=== PATIENT | male | born 1990 | race Caucasian/White ===

== ENCOUNTER 2022-08-13 15:01 | Outpatient (CLI) | payer OTHER, SELFPAY ==
--- NOTE | 2022-08-13 15:30 | CRLHL7_ITS ---
For Patients: As a result of the Century Cures Act, medical imaging exams and procedure reports are released immediately into your electronic medical record. You may view this report before your referring provider. If you have questions, please contact your health care provider. INDICATION: Numbness of right-sided face and neck. TECHNIQUE: Multiplanar multisequence noncontrast MR images acquired through the cervical spine. COMPARISON: None. FINDINGS: The cervical lordosis is maintained. Mild biconvex cervical curvature. Vertebral heights are preserved. No acute fracture or spondylolisthesis. No T1 hypointense marrow replacing lesions. The cervical cord is normal in signal intensity. C2-3: Shallow posterior disc bulge. No spinal canal or neural foraminal narrowing. C3-4: Left eccentric disc osteophyte complex. Minimal left uncinate spurring. No spinal canal or neural foraminal narrowing. C4-5: Annular bulge. No spinal canal or neural foraminal narrowing. C5-6: Disc degeneration. Shallow posterior disc osteophyte complex. Right greater than left uncinate spurring. No spinal canal narrowing. Mild right without left neural foraminal narrowing. C6-7: Disc degeneration. Mild disc height loss and mild endplate edema. Left eccentric disc osteophyte complex. Left greater than right uncinate spurring. Mild spinal canal narrowing. Moderate left without right neural foraminal narrowing. C7-T1: No spinal canal or neural foraminal narrowing. T1-2: No spinal canal or neural foraminal narrowing. IMPRESSION: 1. Multilevel cervical spondylosis without spinal canal stenosis or cord signal abnormality. 2. At C6-7, moderate left neural foraminal narrowing with left C7 nerve root encroachment/impingement. Mild discogenic vertebral body edema. Dictated by Galo Nielsen MD @ 08/13/2022 4:38:57 PM (Electronically Signed)
== END 2022-08-13 15:02 | disposition home or self-care (01) ==
PROVIDERS: PCP Family Medicine; Visit Provider Otolaryngology
DX: R20.0 Anesthesia of skin (principal); M47.812 Spondylosis without myelopathy or radiculopathy, cervical region; M50.223 Other cervical disc displacement at C6-C7 level
CPT/HCPCS: 72141

== ENCOUNTER 2022-11-29 15:15 | Outpatient (CLI) | payer OTHER, SELFPAY ==
--- NOTE | 2022-11-29 15:30 | CRLHL7_ITS ---
For Patients: As a result of the Century Cures Act, medical imaging exams and procedure reports are released immediately into your electronic medical record. You may view this report before your referring provider. If you have questions, please contact your health care provider. INDICATION: Cervicogenic headaches. TECHNIQUE: Brain MRI with contrast. The following sequences were obtained: Sagittal T1 weighted sequence. DWI and ADC mapping sequences. Axial FLAIR and RJ T2 weighted sequences. Sagittal FLAIR sequence. T1 weighted post-contrast sequence(s). 15 cc of Dotarem gadolinium based contrast agent was used. COMPARISON: None. FINDINGS: No evidence of acute ischemia. No evidence of acute or chronic intracranial blood products. No mass or pathologic intracranial enhancement. No intracranial signal abnormality. No hydrocephalus or extra-axial collections. The pituitary gland, parasellar structures and optic chiasm are normal. Posterior fossa steve cisterna magna. All the major intracranial vascular structures demonstrate normal flow-related signal. The orbital contents are normal. No calvarial or skull base marrow signal abnormality. Diffuse paranasal sinus mucosal thickening and retention cysts, with complete opacification of the right frontal sinus, ethmoid air cells and maxillary sinuses. No extracranial soft tissue findings. IMPRESSION: 1. No acute infarction or other acute intracranial pathology. 2. No mass or pathologic intracranial enhancement. 3. No other significant intracranial pathology. 4. Extensive inflammatory opacification of the paranasal sinuses. Dictated by Mason Arreola MD @ 11/30/2022 10:54:57 AM (Electronically Signed)
== END 2022-11-29 15:16 | disposition home or self-care (01) ==
LOC: MRI 15:16
PROVIDERS: PCP Family Medicine; Visit Provider Psychiatry & Neurology Neurology
DX: G44.86 Cervicogenic headache (principal); H53.8 Other visual disturbances; R20.2 Paresthesia of skin
CPT/HCPCS: 70553; A9575